=== PATIENT | male | born 1980 | race Caucasian/White ===

== ENCOUNTER 2021-02-22 10:55 | Emergency (ER) | payer SELFPAY ==
[2021-02-22 12:10] LABS: Urine Blood 2+ (Negative); Urine Glucose Negative (Negative); Urine Protein 2+ (Negative); Urine Specific Gravity 1.025 (1.005-1.030)
--- NOTE | 2021-02-22 13:42 | RAD REPORT ---
EXAM DESCRIPTION: CT - Stone Protocol - 02/22/2021 1:33 pm CLINICAL HISTORY: Abdominal pain. HEMATURIA COMPARISON: No comparisonsNo comparisons TECHNIQUE: CT imaging of the abdomen and pelvis was performed without contrast. Solid organ, bowel a nd vascular assessment is limited due to lack of IV and oral contrast. All CT scans are performed using dose optimization technique as appropriate and may include automated exposure control or mA/KV adjustment according to patient size. FINDINGS: Patchy nodular and ground-glass opacities are present in the lower lungs. Hepatic steatosis. No focal liver lesions are identified. The adrenal glands are unremarkable. The ki dneys are unremarkable. The spleen is unremarkable. The pancreas is unremarkable. Prostate unremarkab le. No bowel obstruction is identified. The appendix is unremarkable. The osseous structures are within normal limits. IMPRESSION: No acute intra-abdominal abnormality. Specifically, no renal or ureteral calculi identif ied. Airspace disease in lung bases concerning for Covid-19 pneumonia. A limited non-contrast examination was performed as detailed.
[2021-02-22 13:53] LABS: Urine Bacteria NONE SEEN /HPF (NONE SEEN)
[2021-02-22 14:55] LABS: Basophils % 0.7 % (0-1.3); Hematocrit 43.2 % (39.6-49.0); Lymphocytes % 17.9 % (15.3-44.8); MPV 8.4 fL (7.6-11.3); RBC Red Blood Cell Count 4.87 M/uL (4.33-5.43)
[2021-02-22] MEDS ORDERED: NA CHLORIDE 0.9% 1,000 ML ONE (14:55)
--- NOTE | 2021-02-22 15:31 | ER ---
Nurse's Notes [facility] Name: Franko Ambrose Age: 40 yrs Sex: Male : 1980 Arrival Date: 02/22/2021 Time: 11:23 Bed 13 Private MD: Diagnosis: Coronavirus infection, unspecified;Viral pneumonia, unspecified;Hematuria, unspecified Presentation: 02/22 11:55 Chief complaint: Patient states: had a fever since Tuesday, has blood in urine today, iw blood in sinuses, headache, no appetite, fatigue , was COVID + on Tuesday. Coronavirus screen: Client presents with at least one sign or symptom that may indicate coronavirus-19. Ebola Screen: Patient negative for fever greater than or equal to 101.5 degrees Fahrenheit, and additional compatible Ebola Virus Disease symptoms Patient denies exposure to infectious person. Patient denies travel to an Ebola-affected area in the 21 days before illness onset. No symptoms or risks identified at this time. Initial Sepsis Screen: Does the patient meet any 2 criteria? No. Patient's initial sepsis screen is negative. Does the patient have a suspected source of infection? No. Patient's initial sepsis screen is negative. Risk Assessment: Do you want to hurt yourself or someone else? Patient reports no desire to harm self or others. 11:55 Method Of Arrival: Ambulatory iw 11:55 Acuity: VIDHYA 3 iw 11:56 Onset of symptoms was February 19, 2021. iw Triage Assessment: 12:00 General: Appears in no apparent distress. uncomfortable, Behavior is cooperative, bp appropriate for age, anxious. Pain: Denies pain. EENT: No deficits noted. Neuro: No deficits noted. Cardiovascular: Rhythm is sinus tachycardia. Respiratory: Airway is patent Respiratory effort is even, labored, Respiratory pattern is symmetrical. : Reports HEMATURIA. Derm: No deficits noted. Musculoskeletal: No deficits noted. Historical: - Allergies: 11:57 No Known Allergies; iw - Home Meds: 11:57 None [Active]; iw - PMHx: 11:57 None; iw - PSHx: 11:57 None; iw - Immunization history:: Client reports having NOT received the Covid vaccine. - Social history:: Smoking status: Patient denies any tobacco usage or history of. Screenin:01 Abuse screen: Denies threats or abuse. Denies injuries from another. Nutritional bp screening: No deficits noted. Tuberculosis screening: No symptoms or risk factors identified. Never had TB. Possible symptoms: cough for more than 2 weeks, Risk factors:. The patient has not been NPO before screening. The patient is alert, able to follow commands. The patient does not exhibit slurred or garbled speech The patient is not exhibiting difficulty speaking. The patient is exhibiting difficulty speaking. The patient is exhibiting difficulty understanding words. The patient is able to swallow own secretions with no drooling or need for suction. The patient tolerated 90mL of water. No drooling, immediate coughing, gurgling, or clearing of the throat was noted. The patient passed the bedside swallow screening. Oral medications may be given as ordered. Contact Physician for further diet orders. Fall Risk None identified. Assessment: 12:00 General: SEE TRIAGE NOTE. bp 14:00 Reassessment: No changes from previously documented assessment. Patient and/or family bp updated on plan of care and expected duration. Pain level reassessed. Patient is alert, oriented x 3, equal unlabored respirations, skin warm/dry/pink. 16:51 Reassessment: PT D/C HOME AMBULATORY, DX WITH CORONAVIRUS INFECTION AND URETERAL STONE. bp Vital Signs: 11:55 BP 129 / 80; Pulse 104; Resp 18 S; Temp 99.8; Pulse Ox 94% on R/A; Weight 120.2 kg; iw Height 5 ft. 10 in. (177.80 cm); 14:00 BP 111 / 87; Pulse 95; Resp 13; Pulse Ox 92% ; bp 15:00 BP 127 / 69; Pulse 107; Resp 16; Pulse Ox 95% ; bp 16:52 BP 131 / 71; Pulse 97; Resp 17; Temp 99.1; Pulse Ox 95% ; bp 11:55 Body Mass Index 38.02 (120.20 kg, 177.80 cm) iw ED Course: 11:23 Patient arrived in ED. ds1 11:56 Triage completed. iw 11:57 Arm band placed on. iw 12:08 Joleen Acosta FNP-C is PHCP. kb 12:08 Gerardo Colmenares MD is Attending Physician. kb 12:29 Brayan Rg, RN is Primary Nurse. bp 13:32 CT Stone Protocol In Process Unspecified. EDMS 15:01 Patient has correct armband on for positive identification. Bed in low position. Call bp light in reach. Side rails up X2. 15:24 Inserted saline lock: 20 gauge in right antecubital area, using aseptic technique. bp Blood collected. 16:52 No provider procedures requiring assistance completed. IV discontinued, intact, bp bleeding controlled, No redness/swelling at site. Pressure dressing applied. Administered Medications: No medications were administered Outcome: 15:31 Discharge ordered by MD. fields 16:52 Discharged to home ambulatory. bp 16:52 Condition: stable 16:52 Discharge instructions given to patient, Instructed on discharge instructions, follow up and referral plans. Demonstrated understanding of instructions, follow-up care. 16:53 Patient left the ED. iw Signatures: Dispatcher [employer] EDWI Joleen Acosta, MARIT[employer] NETWORK ADMIN-Delia Russell ds1 Lin Guerin, RN RN iw Brayan Rg RN RN bp Corrections: (The following items were deleted from the chart) 11:57 11:55 Chief complaint: Patient states: had a fever since Tuesday, has blood in urine iw today, blood in sinuses, headache, no appetite, fatigue iw 11:58 11:55 BP 129 / 80; Pulse 104bpm; iw iw
--- NOTE | 2021-02-22 15:31 | EDPHYS ---
Physician Documentation [facility] Name: Franko Ambrose Age: 40 yrs Sex: Male : 1980 Arrival Date: 02/22/2021 Time: 11:23 Bed 13 Private MD: ALEKS Physician Gerardo Colmenares HPI: 02/22 15:41 This 40 yrs old Male presents to ER via Ambulatory with complaints of Blood kb In Urine, Fever, COVID+. 15:41 The patient presents with passed a blood clot area captain. Onset: The symptoms/episode kb began/occurred today. Modifying factors: The symptoms are alleviated by nothing, the symptoms are aggravated by nothing. Associated signs and symptoms: Pertinent positives: fever, Pertinent negatives: abdominal pain, constipation, diarrhea, dysuria, hematuria, nausea, vomiting. Severity of symptoms: At their worst the symptoms were mild, in the emergency department the symptoms are unchanged. The patient has not experienced similar symptoms in the past. The patient has not recently seen a physician. Patient reports he passed something for his urine this morning that could have been a stone. Then later passed a blood clot. States that is never happened before so he came to get checked out. States he was diagnosed with Covid last week and has had fever ever since with no appetite, fatigue, malaise, cough, congestion. . Historical: - Allergies: 11:57 No Known Allergies; iw - Home Meds: 11:57 None [Active]; iw - PMHx: 11:57 None; iw - PSHx: 11:57 None; iw - Immunization history:: Client reports having NOT received the Covid vaccine. - Social history:: Smoking status: Patient denies any tobacco usage or history of. ROS: 15:41 Abdomen/GI: Negative for abdominal pain, nausea, vomiting, diarrhea, and constipation. kb 15:41 Constitutional: Positive for body aches, chills, fatigue, fever, malaise. 15:41 ENT: Positive for sinus congestion. 15:41 Respiratory: Positive for cough, Negative for dyspnea on exertion, hemoptysis, orthopnea, pleurisy, shortness of breath, sputum production, wheezing. 15:41 : Positive for hematuria. 15:41 All other systems are negative. Exam: 15:40 Head/Face: Normocephalic, atraumatic. ENT: Moist Mucous membranes Respiratory: kb Respirations even and unlabored. No increased work of breathing, no retractions or nasal flaring. Abdomen/GI: Soft, non-tender. No distention Skin: Warm, dry with normal turgor. Normal color. MS/ Extremity: Pulses equal, no cyanosis. Neurovascular intact. Full, normal range of motion. Neuro: Awake and alert, GCS 15, oriented to person, place, time, and situation. Moves all extremities. Normal gait. Psych: Awake, alert, with orientation to person, place and time. Behavior, mood, and affect are within normal limits. 15:40 Constitutional: The patient appears alert, awake, obviously ill, uncomfortable. Vital Signs: 11:55 BP 129 / 80; Pulse 104; Resp 18 S; Temp 99.8; Pulse Ox 94% on R/A; Weight 120.2 kg; iw Height 5 ft. 10 in. (177.80 cm); 14:00 BP 111 / 87; Pulse 95; Resp 13; Pulse Ox 92% ; bp 15:00 BP 127 / 69; Pulse 107; Resp 16; Pulse Ox 95% ; bp 16:52 BP 131 / 71; Pulse 97; Resp 17; Temp 99.1; Pulse Ox 95% ; bp 11:55 Body Mass Index 38.02 (120.20 kg, 177.80 cm) iw MDM: 12:08 Patient medically screened. kb 15:30 Data reviewed: vital signs, nurses notes. Data interpreted: Pulse oximetry: on room air kb is 95 %. Interpretation: normal. Counseling: I had a detailed discussion with the patient and/or guardian regarding: the historical points, exam findings, and any diagnostic results supporting the discharge/admit diagnosis, lab results, radiology results, the need for outpatient follow up, a family practitioner, to return to the emergency department if symptoms worsen or persist or if there are any questions or concerns that arise at home. 02/22 12:08 Order name: Urine Microscopic Only; Complete Time: 14:07 kb 02/22 12:10 Order name: Urine Dipstick-Ancillary EDMS 02/22 13:11 Order name: CT Stone Protocol; Complete Time: 13:44 kb 02/22 13:11 Order name: CBC with Diff kb 02/22 13:11 Order name: Basic Metabolic Panel; Complete Time: 15:24 kb 02/22 13:12 Order name: CBC with Automated Diff; Complete Time: 15:24 EDSD 02/22 12:08 Order name: Urine Dipstick-Ancillary (obtain specimen); Complete Time: 12:49 kb Administered Medications: No medications were administered Disposition: 02/23 07:36 Co-signature as Attending Physician, Gerardo Colmenares MD I agree with the assessment and dante plan of care. Disposition Summary: 02/22/21 15:31 Discharge Ordered Location: Home kb Condition: Stable kb Diagnosis - Coronavirus infection, unspecified kb - Viral pneumonia, unspecified kb - Hematuria, unspecified kb Followup: kb - With: Emergency Department - When: As needed - Reason: Worsening of condition Followup: kb - With: Private Physician - When: 2 - 3 days - Reason: Recheck today's complaints, Continuance of care, Re-evaluation by your physician Discharge Instructions: - Discharge Summary Sheet kb - Hematuria, Adult kb - Viral Respiratory Infection, [id number] kb - COVID-19 kb Forms: - Medication Reconciliation Form kb - Thank You Letter kb - Antibiotic Education kb - Prescription Opioid Use kb Signatures: Dispatcher [employer] EDMS Joleen Acosta, SOURCING ENGINEER-C SOURCING ENGINEER-Gerardo Lewis MD MD cha Williams, Irene, RN RN iw
[2021-02-22 17:12] VITALS: TEMP 99.8
[2021-02-22 17:18] VITALS: BP 127/69; O2SAT 95
== END 2021-02-22 16:53 | disposition home or self-care (01) ==
LOC: ER 10:55
DX: U07.1 COVID-19 (principal); J12.9 Viral pneumonia, unspecified; R31.9 Hematuria, unspecified
CPT/HCPCS: 36415; 74176; 76377; 80048; 81003; 81015; 85025; 99284; J7030